=== PATIENT | male | born 1960 | race Hispanic/Latino ===

== ENCOUNTER 2020-05-14 22:10 | Inpatient (IN) | payer OTHER, SELFPAY ==
[~2020-05-14 22:10] MED LIST: Iopamidol-370 76% 500 ML 1 ML ONE
[2020-05-14] MEDS ORDERED: Morphine 4 MG/ML VIAL ONE (23:07)
[2020-05-14] MEDS ORDERED: Ondansetron PF 4 MG/2 ML Vial ONE (23:07)
[2020-05-14 23:43] LABS: #Basophils 0.1 thou/uL (0.0-0.2); #Eosinphils 0.1 thou/uL (0.0-0.7); #Lymphocytes 2.3 thou/uL (1.20-3.40); #Monocytes 0.5 thou/uL (0.11-0.59); %Basophils 0.6 % (0.0-1.0); %Eosinophils 1.2 % (0.0-10.0); %Lymphocytes 22.9 % (21.0-51.0); %Monocytes 4.9 % (0.0-10.0); %Neutrophils 70.5 % (42.0-75.0); Hemoglobin 15.7 g/dL (14.0-18.0); Mean Corpuscular HGB CONC 33.3 g/dL (32.0-36.0); Mean Corpuscular Hemoglobin 29.1 pg (27.0-31.0); Mean Corpuscular Volume 87.6 fL (78.0-98.0); Mean Platelet Volume 7.2 fL (7.4-10.4); Platelet Count 266 thou/uL (130-400); RBC Distribution Width 12.2 % (11.5-14.5); White Blood Cell (WBC) Count 9.9 thou/uL (4.8-10.8)
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
[2020-05-15 00:06] LABS: Acetaminophen Less than 6.0 mcg/mL (10.0-30.0); Alcohol Less than 10 mg/dL (Less than 10); Salicylate Less than 8.0 mg/dL (15.0-30.0)
[2020-05-15 00:06] LABS: ALT (SGPT) 39 U/L (8-55); AST (SGOT) 32 U/L (5-34); Albumin 4.1 g/dL (3.4-4.8); Alkaline Phosphatase 108 U/L (40-110); Anion Gap 12 mmol/L (10-20); BUN (Urea Nitrogen) 28 mg/dL (8.4-25.7); Bilirubin, Total 0.7 mg/dL (0.2-1.2); Calc. Creatinine Clearance 0 mL/min (70-130); Calcium 9.3 mg/dL (7.8-10.44); Carbon Dioxide 26 mmol/L (23-31); Chloride 104 mmol/L (98-107); Globulin 3.1 g/dL (2.4-3.5); Glucose 174 mg/dL (80-115); Lipase 7 U/L (8-78); Protein, Total 7.2 g/dL (5.8-8.1); Sodium 137 mmol/L (136-145)
[2020-05-15 01:30] LABS: Bacteria/HPF None Seen HPF (None Seen); Bilirubin Negative (Negative); Blood, Urine 3+ (Negative); Clarity Clear (Clear); Glucose, Urine (Dipstick) 50 mg/dL (Negative); Ketone, Urine Negative (Negative); Leukocyte Negative Leu/uL (Negative); Nitrite Negative (Negative); Protein, Urine (Dipstick) 30 mg/dL (Neg-Trace); RBC/HPF 21-50 HPF (0-3); Specific Gravity, Urine 1.034 (1.002-1.036); Squamous Epithelial None Seen HPF (0-3); Urobilinogen Normal mg/dL (Less than 2); pH, Urine 5.5 (5.0-9.0)
[2020-05-15 01:42] LABS: Medtox Reader # READER 4
[2020-05-15 01:43] LABS: Amphetamine Detected (NotDetected); Barbiturates Screen Not Detected (NotDetected); Benzodiazepine Screen Not Detected (NotDetected); Cocaine Metabolite Screen Detected (NotDetected); Medtox Control Line Valid? VALID (VALID); Methadone Not Detected (NotDetected); Methamphetamine Detected (NotDetected); Opiate Screen Detected (NotDetected); Oxycodone Screen Not Detected (NotDetected); Phencyclidine (PCP) Not Detected (NotDetected); THC/Cannabinoid Screen Not Detected (NotDetected); Tricyclic Screen Not Detected (NotDetected)
[2020-05-15] MEDS ORDERED: Ondansetron PF 4 MG/2 ML Vial IVP PRN (02:24)
[2020-05-15] MEDS ORDERED: Morphine 4 MG/ML VIAL SLOW IVP PRN (02:24)
[2020-05-15] MEDS ORDERED: hydrALAZINE 20 MG/ML VIAL SLOW IVP PRN (02:24)
[2020-05-15] MEDS ORDERED: Insulin Regular 300 UNITS/3 ML VIAL SC PRN (02:24)
[2020-05-15] MEDS ORDERED: Dextrose 50% Abboject 50 ML SYRINGE SLOW IVP PRN (02:24)
[2020-05-15] MEDS ORDERED: Dextrose 5% in Water 1,000 ML IV PRN (02:24)
[2020-05-15] MEDS ORDERED: Cyclobenzaprine 10 MG TAB PO PRN (02:27)
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
[2020-05-15] MEDS ORDERED: traMADol HCl 50 MG TAB PO SCH ×2 (06:00→09:37)
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
[2020-05-15] MEDS ORDERED: traMADol HCl 50 MG TAB ONE ×2 (08:08→11:43)
[2020-05-15] MEDS ORDERED: Acetaminophen 500 MG TAB ONE ×2 (08:09→15:30)
[2020-05-15] MEDS ORDERED: Famotidine/PF 20 mg/2ml Vial ONE (08:09)
[2020-05-15] MEDS ORDERED: Ibuprofen 200 MG TAB ONE ×2 (08:09→15:21)
[2020-05-15] MEDS: Famotidine 20 MG TAB PO SCH ×2 (08:31→21:16)
[2020-05-15] MEDS: Acetaminophen 500 MG TAB PO SCH ×4 (08:31→23:48)
[2020-05-15] MEDS: Ibuprofen 600 MG TAB PO SCH ×3 (08:32→21:15)
[2020-05-15] MEDS ORDERED: Famotidine 20 MG TAB ONE (08:35)
[2020-05-15] MEDS ORDERED: Amlodipine 5 MG TAB PO SCH (09:45)
[2020-05-15] MEDS ORDERED: Amlodipine 5 MG TAB ONE (10:09)
[2020-05-15] MEDS: Senokot S 8.6-50 MG TAB PO SCH ×2 (10:17→21:16)
[2020-05-15] MEDS: Polyethylene Glycol 3350 17 GM Packet PO SCH (10:17)
[2020-05-15] MEDS: Gabapentin 300 MG CAP PO SCH ×3 (10:17→21:15)
[2020-05-15] MEDS: traMADol HCl 50 MG TAB PO SCH ×3 (11:36→23:48)
[2020-05-15 11:53] LABS: SARS-CoV-2 PCR by NAA Not Detected (NotDetected)
[2020-05-15 16:44] VITALS: BMI 27.1
[2020-05-15] MEDS: Insulin Regular 300 UNITS/3 ML VIAL SC PRN (18:05)
[2020-05-16] MEDS: Ibuprofen 600 MG TAB PO SCH ×2 (05:13→14:52)
[2020-05-16] MEDS: traMADol HCl 50 MG TAB PO SCH ×3 (05:14→18:37)
[2020-05-16] MEDS: Acetaminophen 500 MG TAB PO SCH ×3 (05:14→18:37)
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
[2020-05-16] MEDS: Famotidine 20 MG TAB PO SCH (08:56)
[2020-05-16] MEDS: Senokot S 8.6-50 MG TAB PO SCH (08:56)
[2020-05-16] MEDS: Gabapentin 300 MG CAP PO SCH ×2 (08:56→14:52)
[2020-05-16] MEDS: Polyethylene Glycol 3350 17 GM Packet PO SCH (08:57)
[2020-05-16] MEDS ORDERED: Amlodipine 5 MG TAB PO SCH (09:00)
[2020-05-16] MEDS: Insulin Regular 300 UNITS/3 ML VIAL SC PRN (12:23)
[2020-05-16 15:18] VITALS: BP 133/83; TEMP 97.4
== END 2020-05-16 18:35 | disposition home or self-care (01) | DRG 200 ==
LOC: ERS 22:10 → ERHOLD 05-15 02:24 → SJJU 05-15 15:42
PROVIDERS: ADMIT Specialist; ATTEND Specialist
DX: S27.0XXA Traumatic pneumothorax, initial encounter (principal); S22.41XA Multiple fractures of ribs, right side, initial encounter for closed fracture; I10 Essential (primary) hypertension; E11.9 Type 2 diabetes mellitus without complications; F17.210 Nicotine dependence, cigarettes, uncomplicated; E78.00 Pure hypercholesterolemia, unspecified; F19.10 Other psychoactive substance abuse, uncomplicated; E78.5 Hyperlipidemia, unspecified; Z20.822 Contact with and (suspected) exposure to COVID-19; V23.4XXA Motorcycle driver injured in collision with car, pick-up truck or van in traffic accident, initial encounter; Y93.55 Activity, bike riding; Z83.3 Family history of diabetes mellitus; Z88.0 Allergy status to penicillin; Z82.3 Family history of stroke
CPT/HCPCS: 36415; 36416; 70450; 71045; 71260; 72125; 74177; 80053; 80306; 80307; 81003; 81015; 83690; 85025; 86850; 86900; 86901; 87635; 94640; 96374; 96375; J1815; J2270; J2405; J7620; Q9967; S0028; U0003; U0005

== ENCOUNTER 2022-09-30 19:12 | Emergency (ER) | payer BC, SELFPAY ==
[~2022-09-30 19:12] MED LIST changes: -Iopamidol-370 76% 500 ML 1 ML ONE; +Iopamidol-370 76% 500 ML MDV (1 ML CHARGE) ONE
[2022-09-30 19:32] LABS: #Eosinphils 0.2 thou/uL (0.0-0.7); #Monocytes 0.5 thou/uL (0.11-0.59); #Neutrophils 3.2 thou/uL (1.40-6.50); %Basophils 0.6 % (0.0-1.0); %Eosinophils 2.6 % (0.0-10.0); %Neutrophils 44.7 % (42.0-75.0); Hemoglobin 15.4 g/dL (14.0-18.0); Mean Corpuscular HGB CONC 34.8 g/dL (32.0-36.0); Mean Corpuscular Hemoglobin 29.3 pg (27.0-31.0); Mean Corpuscular Volume 84.2 fl (78.0-98.0); Mean Platelet Volume 10.3 fL (7.4-10.4); Platelet Count 230 10x3/uL (130-400); Red Blood Cell (RBC) Count 5.25 mill/uL (4.70-6.10); White Blood Cell (WBC) Count 7.2 10x3/uL (4.8-10.8)
[2022-09-30 19:41] LABS: INR-International Normal Ratio 0.9; PTT 26.4 sec (22.9-36.1); Prothrombin Time 12.9 sec (12.0-14.7)
[2022-09-30 20:00] LABS: ALT (SGPT) 44 U/L (8-55); AST (SGOT) 23 U/L (5-34); Alkaline Phosphatase 169 U/L (40-110); Anion Gap 15 mmol/L (10-20); BUN (Urea Nitrogen) 20 mg/dL (8.4-25.7); Bilirubin, Total 0.6 mg/dL (0.2-1.2); CK (CPK) 186 U/L (30-200); Calc. Creatinine Clearance 0 mL/min (70-130); Calcium 9.7 mg/dL (7.8-10.44); Carbon Dioxide 25 mmol/L (23-31); Chloride 95 mmol/L (98-107); Estimated GFR 82; Globulin 3.3 g/dL (2.4-3.5); Potassium 3.7 mmol/L (3.5-5.1); Protein, Total 7.3 g/dL (5.8-8.1); Sodium 131 mmol/L (136-145)
[2022-09-30 20:05] LABS: Glucose 468 mg/dL (80-115)
[2022-09-30 20:14] LABS: Bacteria/HPF None Seen HPF (None Seen); Bilirubin Negative (Negative); Blood, Urine Negative (Negative); CAUTI Indications for Culture Alt mental st,lethar; Clarity Clear (Clear); Glucose, Urine (Dipstick) Greater than 1000 mg/dL (Negative); Ketone, Urine Negative (Negative); Leukocyte Negative Leu/uL (Negative); Nitrite Negative (Negative); Protein, Urine (Dipstick) Negative (Neg-Trace); RBC/HPF 0-3 HPF (0-3); Specific Gravity, Urine 1.039 (1.002-1.036); Squamous Epithelial 0-3 HPF (0-3); Urobilinogen Normal mg/dL (Less than 2); WBC/HPF None Seen HPF (0-3)
[2022-09-30] MEDS ORDERED: Insulin Regular 300 UNITS/3 ML VIAL ONE (20:19)
[2022-09-30 20:20] LABS: Amphetamine Detected (NotDetected); Barbiturates Screen Not Detected (NotDetected); Benzodiazepine Screen Not Detected (NotDetected); Cocaine Metabolite Screen Not Detected (NotDetected); Methadone Not Detected (NotDetected); Methamphetamine Detected (NotDetected); Opiate Screen Not Detected (NotDetected); Oxycodone Screen Not Detected (NotDetected); Phencyclidine (PCP) Not Detected (NotDetected); THC/Cannabinoid Screen Not Detected (NotDetected); Tricyclic Screen Not Detected (NotDetected)
[2022-09-30 20:23] LABS: Urine Culture Reflex No No
[2022-09-30 20:59] LABS: Acetaminophen Less than 10 mcg/mL (10.0-30.0); Alcohol Less than 10.0 mg/dL (Less than 10); Lipase 20 U/L (8-78); Salicylate Less than 8.0 mg/dL (15.0-30.0)
== END 2022-09-30 20:05 | disposition home or self-care (01) ==
LOC: ERS 19:12
DX: E11.65 Type 2 diabetes mellitus with hyperglycemia (principal); E11.40 Type 2 diabetes mellitus with diabetic neuropathy, unspecified; I10 Essential (primary) hypertension; F17.210 Nicotine dependence, cigarettes, uncomplicated
CPT/HCPCS: 36416; 70450; 70496; 70498; 71045; 80053; 80306; 80307; 81001; 82550; 83605; 83690; 83735; 83880; 84484; 85025; 85610; 85730; 86140; 93005; 96361; 96374; J1815; Q9967

== ENCOUNTER 2022-12-09 01:17 | Emergency (ER) | payer BC ==
[2022-12-09 01:49] LABS: #Basophils 0.1 thou/uL (0.0-0.2); #Eosinphils 0.2 thou/uL (0.0-0.7); #Monocytes 0.4 thou/uL (0.11-0.59); #Neutrophils 3.1 thou/uL (1.40-6.50); %Basophils 0.9 % (0.0-1.0); %Eosinophils 3.1 % (0.0-10.0); %Lymphocytes 41.1 % (21.0-51.0); %Neutrophils 48.7 % (42.0-75.0); Hematocrit 46.2 % (42.0-52.0); Hemoglobin 15.8 g/dL (14.0-18.0); Mean Corpuscular HGB CONC 34.2 g/dL (32.0-36.0); Mean Corpuscular Hemoglobin 29.5 pg (27.0-31.0); Mean Corpuscular Volume 86.2 fl (78.0-98.0); Mean Platelet Volume 10.2 fL (7.4-10.4); Platelet Count 219 10x3/uL (130-400); RBC Distribution Width 12.1 % (11.5-14.5); Red Blood Cell (RBC) Count 5.36 mill/uL (4.70-6.10); White Blood Cell (WBC) Count 6.4 10x3/uL (4.8-10.8)
[2022-12-09 02:14] LABS: Troponin I Less than 0.010 ng/mL (< 0.028)
[2022-12-09 02:39] LABS: ALT (SGPT) 32 U/L (8-55); AST (SGOT) 25 U/L (5-34); Albumin 3.6 g/dL (3.4-4.8); Alkaline Phosphatase 117 U/L (40-110); Anion Gap 15 mmol/L (10-20); BUN (Urea Nitrogen) 21 mg/dL (8.4-25.7); Bilirubin, Total 0.6 mg/dL (0.2-1.2); Calc. Creatinine Clearance 0 mL/min (70-130); Calcium 9.2 mg/dL (7.8-10.44); Carbon Dioxide 17 mmol/L (23-31); Chloride 104 mmol/L (98-107); Estimated GFR 93; Globulin 3.3 g/dL (2.4-3.5); Glucose 239 mg/dL (80-115); Lipase 7 U/L (8-78); Potassium 4.1 mmol/L (3.5-5.1); Protein, Total 6.9 g/dL (5.8-8.1); Sodium 132 mmol/L (136-145)
== END 2022-12-09 03:34 | disposition home or self-care (01) ==
LOC: ERS 01:17
DX: R07.89 Other chest pain (principal); I10 Essential (primary) hypertension; E11.9 Type 2 diabetes mellitus without complications; F17.210 Nicotine dependence, cigarettes, uncomplicated
CPT/HCPCS: 36415; 71045; 80053; 83690; 84484; 85025; 93005; 94760

== ENCOUNTER 2023-12-29 10:27 | Emergency (ER) | payer BC, OTHER ==
[2023-12-29 11:11] LABS: #Basophils 0.04 10x3/uL (0.0-0.2); %Basophils 0.6 % (0.0-1.0); %Eosinophils 3.1 % (0.0-10.0); %Monocytes 10.7 % (0.0-10.0); %Neutrophils 50.3 % (42.0-75.0); Hematocrit 49.5 % (42.0-52.0); Hemoglobin 16.6 g/dL (14.0-18.0); Mean Corpuscular HGB CONC 33.5 g/dL (32.0-36.0); Mean Corpuscular Hemoglobin 28.2 pg (27.0-31.0); Mean Corpuscular Volume 84.2 fL (78.0-98.0); Mean Platelet Volume 9.6 fL (7.4-10.4); Platelet Count 230 10x3/uL (130-400); RBC Distribution Width 12.4 % (11.5-14.5); Red Blood Cell (RBC) Count 5.88 mill/uL (4.70-6.10)
[2023-12-29 11:25] LABS: ALT (SGPT) 33 U/L (8-55); AST (SGOT) 26 U/L (5-34); Albumin 3.8 g/dL (3.4-4.8); Alkaline Phosphatase 107 U/L (40-110); Anion Gap 12 mmol/L (10-20); BUN (Urea Nitrogen) 20 mg/dL (8.4-25.7); Bilirubin, Total 0.8 mg/dL (0.2-1.2); Calc. Creatinine Clearance 0 mL/min (70-130); Calcium 9.5 mg/dL (7.8-10.44); Carbon Dioxide 26 mmol/L (23-31); Chloride 105 mmol/L (98-107); Estimated GFR 97; Globulin 3.6 g/dL (2.4-3.5); Glucose 164 mg/dL (80-115); Protein, Total 7.4 g/dL (5.8-8.1); Sodium 139 mmol/L (136-145)
[2023-12-29 11:39] LABS: Troponin I Less than 0.010 ng/mL (< 0.028)
[2023-12-29 12:47] LABS: Lipase 13 U/L (8-78)
== END 2023-12-29 12:50 | disposition left against medical advice (07) ==
LOC: ERS 10:27
DX: R07.9 Chest pain, unspecified (principal); I10 Essential (primary) hypertension; E11.9 Type 2 diabetes mellitus without complications; E78.5 Hyperlipidemia, unspecified; F17.290 Nicotine dependence, other tobacco product, uncomplicated; F17.210 Nicotine dependence, cigarettes, uncomplicated
CPT/HCPCS: 71045; 80053; 83690; 84484; 85025; 93005

== ENCOUNTER 2025-02-13 14:20 | Emergency (ER) | payer OTHER | END 2025-02-13 16:17 | disposition home or self-care (01) | LOC: ERS 14:20 | DX: S50.862A Insect bite (nonvenomous) of left forearm, initial encounter (principal); L03.114 Cellulitis of left upper limb; I10 Essential (primary) hypertension; E11.9 Type 2 diabetes mellitus without complications; E78.00 Pure hypercholesterolemia, unspecified; F17.210 Nicotine dependence, cigarettes, uncomplicated; W57.XXXA Bitten or stung by nonvenomous insect and other nonvenomous arthropods, initial encounter | CPT/HCPCS: 99281 ==